=== PATIENT | female | born 1960 | race Caucasian/White ===

== ENCOUNTER → 2017-04-11 | Outpatient (CLI) | payer MEDICAID | END | disposition home or self-care (01) | LOC: RAD 11:15 | DX: R05 Cough (principal); F51.01 Primary insomnia; F17.200 Nicotine dependence, unspecified, uncomplicated ==

== ENCOUNTER → 2017-05-08 | Outpatient (CLI) | payer MEDICAID | END | disposition home or self-care (01) | LOC: CP 07:56 | DX: J20.9 Acute bronchitis, unspecified (principal) ==

== ENCOUNTER 2019-07-08 10:50 | Emergency (ER) | payer SELFPAY ==
[~2019-07-08] VITALS: Ht 172.7 cm; Wt 104.3 kg
[2019-07-08 12:46] LABS: BASO % 0.4 % (0.0-1.0); EOS # 0.2 10*3/uL (0.0-0.4); EOS % 1.9 % (1.0-4.0); HEMATOCRIT 39.4 % (37.0-47.0); HEMOGLOBIN 12.5 g/dl (12.0-16.0); LYMPH # 3.5 10*3/uL (1.3-4.4); LYMPH % 38.2 % (27.0-41.0); MEAN CORPUSCULAR HGB 27.3 pg (27.0-31.0); MEAN CORPUSCULAR HGB CONC 31.7 g/dl (33.0-37.0); MEAN PLATELET VOLUME 9.7 fl (9.6-12.3); MONO # 0.5 10*3/uL (0.1-1.0); NEUT # 4.9 10*3/uL (2.3-7.9); NEUT % 54.2 % (47.0-73.0); PLATELET COUNT AUTOMATED 270 10*3/uL (130-400); RED BLOOD COUNT 4.58 10*6/uL (4.10-5.10); WHITE BLOOD COUNT 9.1 10*3/uL (4.8-10.8)
[2019-07-08 13:00] LABS: ALBUMIN 3.2 gm/dl (3.1-4.5); ALKALINE PHOSPHATASE 109 U/L (45-117); BUN 11 mg/dl (7-24); CHLORIDE 111 mmol/L (98-107); CREATININE 0.86 mg/dL (0.55-1.02); POTASSIUM 3.8 mmol/L (3.5-5.1); SGOT/AST 13 IU/L (3-35); SGPT/ALT 23 U/L (12-78); SODIUM 143 mmol/L (136-145); TOTAL PROTEIN 6.9 gm/dL (6.4-8.2)
[2019-07-08] MEDS ORDERED: PROAIR HFA8.5 GM INH (14:33)
[2019-07-08] MEDS ORDERED: PREDNISONE50 MG PO (14:33)
[2019-07-08] MEDS ORDERED: DOXYCYCLINE100 M3 PO (14:33)
== END 2019-07-08 14:08 | disposition admitted as inpatient to this hospital (09) ==
LOC: ED 10:50
PROVIDERS: Nurse Practitioner
DX: J40 Bronchitis, not specified as acute or chronic (principal); F17.200 Nicotine dependence, unspecified, uncomplicated

== ENCOUNTER 2024-07-20 09:14 | Emergency (ER) | payer OTHER ==
[~2024-07-20] VITALS: Wt 108.9 kg
[~2024-07-20 09:14] MED LIST: DOXYCYCLINE100 M3 PO; PREDNISONE50 MG PO; PROAIR HFA8.5 GM INH
[2024-07-20] MEDS ORDERED: FAMOTIDINE 50 ML IV ONE (09:30)
[2024-07-20] MEDS ORDERED: Ondansetron Hydrochloride 4 MG/2 ML VIAL IV ONE (09:30)
[2024-07-20] MEDS ORDERED: SODIUM CHLORIDE 0.9% 1,000 ML IV ONE ×2 (09:30→09:54)
[2024-07-20 09:42] LABS: BASO # 0.1 10*3/uL (0.0-0.1); BASO % 0.6 % (0.0-1.0); EOS # 0.2 10*3/uL (0.0-0.4); HEMATOCRIT 42.5 % (37.0-47.0); MEAN CELL VOLUME 86.6 fl (81.0-99.0); MEAN CORPUSCULAR HGB 28.1 pg (27.0-31.0); MEAN CORPUSCULAR HGB CONC 32.5 g/dl (33.0-37.0); MEAN PLATELET VOLUME 9.7 fl (9.6-12.3); MONO # 0.3 10*3/uL (0.1-1.0); MONO % 4.1 % (3.0-9.0); NEUT # 5.3 10*3/uL (2.3-7.9); NEUT % 67.1 % (47.0-73.0); PLATELET COUNT AUTOMATED 293 10*3/uL (130-400); RED BLOOD COUNT 4.91 10*6/uL (4.10-5.10); RED CELL DISTRI WIDTH 13.6 % (0-14.5); WHITE BLOOD COUNT 7.9 10*3/uL (4.8-10.8)
[2024-07-20 09:59] LABS: BUN 18 mg/dl (9-23); CHLORIDE 108 mmol/L (98-107); POTASSIUM 3.8 mmol/L (3.4-5.1)
[2024-07-20] MEDS ORDERED: Ondansetron4 MG PO (10:16)
== END 2024-07-20 10:44 | disposition home or self-care (01) ==
LOC: ED 09:14
PROVIDERS: Emergency Medicine
DX: R11.2 Nausea with vomiting, unspecified (principal); R19.7 Diarrhea, unspecified; J44.9 Chronic obstructive pulmonary disease, unspecified; Z79.899 Other long term (current) drug therapy

== ENCOUNTER → 2025-01-09 | Outpatient (CLI) | payer OTHER ==
[~2025-01-09] MED LIST changes: +Ondansetron4 MG PO
== END ==
LOC: RAD 14:57
PROVIDERS: ATTEND Nurse Practitioner
DX: J44.1 Chronic obstructive pulmonary disease with (acute) exacerbation (principal)